=== PATIENT | male | born 1950 | race Caucasian/White ===

== ENCOUNTER → 2017-06-14 | Outpatient (CLI) | payer MEDICARE | LOC: M WUC 17:10 | DX: M79.621 Pain in right upper arm (principal) | CPT/HCPCS: 73060 ==

== ENCOUNTER 2020-09-04 03:26 | Inpatient (IN) | payer MEDICARE ==
[~2020-09-04] VITALS: Ht 172.7 cm; Wt 84.9 kg
[2020-09-04] VITALS (7 sets, daily range): BP systolic 117–134; BP diastolic 67–74
[2020-09-04 04:00] LABS: BASO % 0.3 % (0.0-1.0); HEMATOCRIT 48.1 % (42.0-52.0); HEMOGLOBIN 16.4 g/dl (13.5-17.5); LYMPH # 2.2 10^3/uL (1.5-5.0); MEAN CORPUSCULAR HGB CONC 34.1 g/dl (32.0-36.5); MEAN CORPUSCULAR VOLUME 90.9 fl (80.0-96.0); MONO # 1.5 10^3/uL (0.0-0.8); MONO % 9.3 % (2.0-8.0); NEUTROPHILS % 75.9 % (36.0-66.0); PLATELET COUNT, AUTOMATED 218 10^3/uL (150-450); RED BLOOD COUNT 5.29 10^6/uL (4.30-6.10)
[2020-09-04 04:01] LABS: WHITE BLOOD COUNT 15.8 10^3/uL (4.0-10.0)
[2020-09-04 04:29] LABS: ALBUMIN 3.5 GM/DL (3.2-5.2); ALT/SGPT 22 U/L (12-78); BILIRUBIN,DIRECT 0.3 MG/DL (0.0-0.2); BILIRUBIN,TOTAL 1.2 MG/DL (0.2-1.0); CK-MB VALUE MASS 1.4 NG/ML (<3.6); CPK CREATINE PHOSPHOKINASE 114 U/L (39-308); LIPASE 80 U/L (73-393); MB/CK RELATIVE INDEX 1.23 (< OR =4); TOTAL PROTEIN 7.5 GM/DL (6.4-8.2); TROPONIN I < 0.02 NG/ML (< 0.10)
[2020-09-04] MEDS ORDERED: NS 1,000 ML IV ONE (06:25)
[2020-09-04] MEDS ORDERED: KETOROLAC 30 MG/ML 1ML VIAL IV ONE (06:25)
[2020-09-04] MEDS ORDERED: ISOVUE-370 76% 100ML VIAL As Ordered ONE (06:33)
--- NOTE | 2020-09-04 07:51 | REPVR ---
PROCEDURE INFORMATION: Exam: CT Abdomen And Pelvis With Contrast Exam date and time: 09/04/2020 6:21 AM Age: 70 years old Clinical indication: Abdominal pain; Additional info: Periumbilic pain TECHNIQUE: Imaging protocol: Computed tomography of the abdomen and pelvis with contrast. Radiation optimization: All CT scans at this facility use at least one of these dose optimization techniques: automated exposure control; mA and/or kV adjustment per patient size (includes targeted exams where dose is matched to clinical indication); or iterative reconstruction. Contrast material: ISOVUE 370; Contrast volume: 100 ml; Contrast route: INTRAVENOUS (IV); COMPARISON: No relevant prior studies available. FINDINGS: Lungs: There is bibasilar atelectasis. There is a 7 mm right basilar granuloma. Liver: There is a 2.1 cm hypodensity in the right lobe of the liver which is statistically incidental and consistent with a cyst. There is fatty infiltration of the liver. Gallbladder and bile ducts: The gallbladder is contracted. Pancreas: Mild atrophy. No ductal dilation. Spleen: Normal. No splenomegaly. Adrenal glands: Normal. No mass. Kidneys and ureters: There is mild left hydronephrosis and hydroureter to a 9 mm calculus in the distal left ureter 1 cm from the UVJ (129/201). This appears present on the vacuum truck driver radiograph. Stomach and bowel: There is a moderate amount of stool in the right colon. Appendix: No evidence of appendicitis. Intraperitoneal space: No free air. No significant fluid collection. Vasculature: No abdominal aortic aneurysm. Lymph nodes: No enlarged lymph nodes. Urinary bladder: There is bladder wall thickening, which may be secondary to chronic outlet obstruction. Correlation urinalysis is recommended. Reproductive: Unremarkable as visualized. Bones/joints: There are degenerative changes throughout the spine. There also are degenerative changes of the hips. There is a lucency seen in the proximal left femur which may be related to a prior procedure. Soft tissues: There is a small hernia. IMPRESSION: 1. There is mild obstruction of the left kidney from a 9 mm distal left ureteral calculus 1 cm from the UVJ. 2. There are there is moderate amount of stool in the right colon. Electronically signed by: Raleigh Dunn On 09/04/2020 07:51:20 AM
[2020-09-04] MEDS ORDERED: CIPROFLOXACIN 400 MG in IV 1 EA IV ONE (09:25)
[2020-09-04 10:40] LABS: RSV AMPLIFICATION NEGATIVE (NEGATIVE)
[2020-09-04] MEDS ORDERED: MAALOX 30 ML SUSP *UDC PO PRN (11:50)
[2020-09-04] MEDS ORDERED: MOM 30ML SUSPENSION UDC PO PRN (11:50)
[2020-09-04] MEDS ORDERED: MORPHINE 2 MG/ML 1ML VIAL (J2270) IV PRN ×2 (12:00→17:45)
[2020-09-04 12:45] LABS: BLOOD UREA NITROGEN 22 MG/DL (7-18); CALCIUM LEVEL 8.7 MG/DL (8.8-10.2); CARBON DIOXIDE LEVEL 23 MEQ/L (21-32); CHLORIDE LEVEL 109 MEQ/L (98-107); CREATININE FOR GFR 0.89 MG/DL (0.70-1.30); GLOMERULAR FILTRATION RATE > 60.0 (>42); GLUCOSE, FASTING 96 MG/DL (70-100); POTASSIUM SERUM 3.9 MEQ/L (3.5-5.1); SODIUM LEVEL 139 MEQ/L (136-145)
[2020-09-04] MEDS ORDERED: CONRAY-60 60% 50ML VIAL (Q9961) As Ordered ONE (13:03)
[2020-09-04] MEDS: NS 1,000 ML IV SCH (13:15)
[2020-09-04] MEDS ORDERED: PIPERACILLIN/TAZOBACTAM SOD 3.375 GM in D5W MINI-BAG PLUS 50 ML IV SCH (14:00)
[2020-09-04] MEDS ORDERED: METOCLOPRAMIDE INJ 10MG/2ML VIAL (J2765 PER 1) As Ordered ONE (16:07)
[2020-09-04] MEDS ORDERED: ONDANSETRON 4MG/2ML VIAL As Ordered ONE (16:07)
[2020-09-04] MEDS ORDERED: LIDOCAINE 2% 100MG/5ML SDV (FOR ANES.) As Ordered ONE (16:07)
[2020-09-04] MEDS ORDERED: propofoL 200 MG/20 ML VIAL As Ordered ONE (16:07)
[2020-09-04] MEDS ORDERED: fentaNYL 100 MCG/2 ML INJECTION (J3010) As Ordered ONE (16:07)
[2020-09-04] MEDS ORDERED: MIDAZOLAM INJ 2MG/2ML VIAL (J2250 PER 1MG) As Ordered ONE (16:08)
--- NOTE | 2020-09-04 16:38 | SMCUROLCON ---
Urology Consultation General Date of Consultation 09/04/20 Reason For Consultation This patient is seen for Pyelonephritis. History of Present Illness This is a 70 y/o M w/ no significant, presenting to the ER for severe L flank and abdominal pain and weakness. A noncontrast CT A/P was notable for moderate L hydroureteronephrosis 2/2 an obstructing 1cm distal L ureteral stone. There was also perinephric stranding. He notes that his pain is a little better now. He does not feel as weak. He denies dysuria. Denies fevers. Past Medical History Medical History see [facility] Surgical Hstory b/l leg surgery several years ago Medications Current Medications Current Medications Medications (Trade) Dose Ordered Sig/Home Route PRN Reason Start Time Stop Time Status Last Admin Dose Admin Acetaminophen (Tylenol Tab) 650 mg Q4H PRN PO MILD PAIN (PS 1-4) 09/04/20 11:50 Al Hydrox/Mg Hydrox/Simethicone (Mylanta) 30 ml DAILY PRN PO DYSPEPSIA 09/04/20 11:50 Ceftriaxone Sodium 1 gm/ Dextrose 50 ml @ 100 mls/hr Q24H IV 09/04/20 19:00 Home Med (Med Rec Complete!) ASDIRECTED XX 09/04/20 12:35 09/04/20 12:38 DC Magnesium Hydroxide (Milk Of Magnesia) 30 ml DAILY PRN PO CONSTIPATION 09/04/20 11:50 Morphine Sulfate (Morphine Sulfate Inj) 2 mg Q4H PRN IV MODERATE PAIN (PS 5-7) 09/04/20 12:00 Piperacillin Sod/ Tazobactam Sod 3.375 gm/Dextrose 50 ml @ 50 mls/hr Q6H IV 09/04/20 14:00 09/04/20 15:14 DC 09/04/20 13:14 Sodium Chloride 1,000 ml @ 100 mls/hr Q10H IV 09/04/20 12:00 09/04/20 13:15 Allergies Allergies: Coded Allergies: No Known Allergies (Unverified , 09/04/20) Review of Systems Constitutional: Reports: Weakness; Denies: Fever, Chills Skin: Denies: Rash, Lesions, Breakdown, Nail Changes Pulmonary: Denies: Dyspnea, Cough Cardiovascular: Denies Chest Pain, Denies Palpitations Gastrointestinal: Reports: Abdominal Pain Genitourinary: Denies: Dysuria, Frequency, Incontinence, Hematuria Musculoskeletal: Reports: Back Pain (L flank) Psych: Reports: Mood Normal Physical Examination General Exam: Alert, Cooperative, No Acute Distress Chest Exam: Normal air movement Heart Exam: Rate Normal Abdomen Exam: Soft, Tenderness (mild) Skin Exam: Nl turgor and temperature Neuro Exam: Normal Speech Psych Exam: Mood NL Vital Signs/I&O Vital Signs Date Time Temp Pulse Resp B/P (MAP) Pulse Ox O2 Delivery O2 Flow Rate FiO2 09/04/20 13:00 97.4 69 18 134/69 (90) 98 Room Air Laboratory Data 24H Labs Laboratory Tests 2 09/04/20 03:52: POC Glucose (Misc Panel) 130H, POC Sodium (Misc Panel) 138, POC Potassium (Misc Panel) 3.9, POC Chloride (Misc Panel) 104, POC Total CO2 (Misc Panel) 22.0L, POC Blood Urea Nitrogen (Misc Panel 23, POC Ionized Calcium (Misc Panel) 4.7, POC Creatinine (Misc Panel) 1.0, POC Hematocrit (Misc Panel) 50.0 09/04/20 03:53: Immature Granulocyte % (Auto) 0.5, Neutrophils (%) (Auto) 75.9H, Lymphocytes (%) (Auto) 14.0L, Monocytes (%) (Auto) 9.3H, Eosinophils (%) (Auto) 0.0, Basophils (%) (Auto) 0.3, Neutrophils # (Auto) 12.0H, Lymphocytes # (Auto) 2.2, Monocytes # (Auto) 1.5H, Eosinophils # (Auto) 0.0, Basophils # (Auto) 0.0, Nucleated Red Blood Cells % (auto) 0.0, Lactic Acid Level 1.7, Total Bilirubin 1.2H, Direct Bilirubin 0.3H, Aspartate Amino Transf (AST/SGOT) 23, Alanine Aminotransferase (ALT/SGPT) 22, Alkaline Phosphatase 86, Total Creatine Kinase 114, Creatine Kinase MB 1.4, Creatine Kinase MB Relative Index 1.23, Troponin I < 0.02, Total Protein 7.5, Albumin 3.5, Albumin/Globulin Ratio 0.9, Lipase 80 09/04/20 07:29: Urine Color YELLOW, Urine Appearance HAZY, Urine pH 5.0, Urine Specific [place] 1.018, Urine Protein 1+H, Urine Glucose (UA) NEGATIVE, Urine Ketones NEGATIVE, Urine Blood 3+H, Urine Nitrite NEGATIVE, Urine Bilirubin NEGATIVE, Urine Urobilinogen 0.2, Urine Leukocyte Esterase 2+H, Urine WBC (Auto) 90H, Urine RBC (Auto) 12H, Urine Hyaline Casts (Auto) 0, Urine Bacteria (Auto) 1+H, Urine Squamous Epithelial Cells 0, Urine Mucus (Auto) SMALL, Urine Sperm (Auto) 09/04/20 09:39: Coronavirus (COVID-19)(PCR) NEGATIVE, Influenza Type A (RT-PCR) NEGATIVE, Influenza Type B (RT-PCR) NEGATIVE, Respiratory Syncytial Virus (PCR) NEGATIVE 09/04/20 12:06: Anion Gap 7L, Glomerular Filtration Rate > 60.0, Calcium Level 8.7L CBC/BMP Laboratory Tests 09/04/20 03:53 09/04/20 12:06 Microbiology Microbiology 09/04/20 Urine Culture, Received Pending Assessment This is a 70 y/o M w/ possible pyelonephritis an obstructing 1cm distal L uret eral stone. I recommended that we take him to the OR today for cystoscopy, L ureteroscopy w/ laser lithotripsy, and L ureteral stent placement. After a discussion of the risks and benefits, informed consent was signed. Plan - informed consent signed - NPO - zosyn and cipro given - to OR now KYLE KENT MD September 04, 2020 15:51
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
[2020-09-04] MEDS ORDERED: dexameTHASONE 4 MG/ML 1ML VIAL (J1100 PER 1MG) As Ordered ONE (17:39)
[2020-09-04] MEDS ORDERED: KETOROLAC 60MG 2ML VIAL As Ordered ONE (17:39)
[2020-09-04] MEDS ORDERED: METOCLOPRAMIDE INJ 10MG/2ML VIAL (J2765 PER 1) IV PRN (17:45)
[2020-09-04] MEDS ORDERED: oxyCODONE 5MG TAB PO PRN (17:45)
[2020-09-04] MEDS ORDERED: LR 1,000 ML IV SCH (17:45)
[2020-09-04] MEDS ORDERED: fentaNYL 100 MCG/2 ML INJECTION (J3010) IV PRN (17:45)
[2020-09-04] MEDS ORDERED: ONDANSETRON 4MG/2ML VIAL IV PRN (17:45)
[2020-09-04] MEDS ORDERED: PERCOCET 5MG/325MG TAB PO PRN (17:50)
--- NOTE | 2020-09-04 17:55 | REP ---
INDICATION: LEFT STENT PLACEMENT. COMPARISON: None. TECHNIQUE: Two C-arm views abdomen and pelvis. FINDINGS: Contrast partially opacifies the urinary bladder and the left pelvocaliceal system and ureter. There is a left ureteral stent placed. The proximal end is coiled in left renal pelvis and the distal end in the urinary bladder. IMPRESSION: 12 seconds fluoroscopy time utilized. <Electronically signed by Noel Bernard > 09/04/20 [id number]
[2020-09-04] MEDS: cefTRIAXone SOD 1 GM in D5W MINI-BAG PLUS 50 ML IV SCH (18:14)
--- NOTE | 2020-09-04 18:38 | RO ---
OPERATIVE NOTE DATE OF OPERATION: 09/04/2020 PREOPERATIVE DIAGNOSIS: Left ureteral stone. POSTOPERATIVE DIAGNOSIS: Left ureteral stone. PROCEDURE: Cystoscopy, left ureteroscopy with laser lithotripsy and basket extraction of stones, left retrograde pyelogram with intraop interpretation of images, left ureteral stent placement. SURGEON: Junior Tracy MD BULLDOZER ENGINEER: None. ANESTHESIA: General. OPERATIVE INDICATIONS: This is a 70-year-old male who presented to the hospital with weakness and severe left-sided abdominal and flank pain. He was found to have an obstructing 1 cm distal left ureteral stone as well as concern for pyelonephritis. He is brought to the operating room today for treatment. DESCRIPTION OF PROCEDURE: The patient was brought to the operating room and general anesthesia was induced. Broad-spectrum antibiotics had already been infused. A rigid cystoscope was inserted in the urethral meatus and advanced to the bladder. A guidewire was advanced up the left collecting system. I then went up the left collecting system with a short semirigid ureteroscope and within the distal ureter, an impacted 1 cm stone was seen. The stone was fragmented into smaller pieces using a 272 micron laser fiber. All the fragments were then removed using a basket. I then examined the more proximal ureter and it was very tortuous and dilated. No additional stones were seen. A retrograde pyelogram was performed and was notable for moderate left hydroureteronephrosis with no extravasation. I then withdrew the ureteroscope and no additional stones were seen inside the ureter. I then utilized the guidewire to advance a 7 [place] x 22-32 cm JJ ureteral stent up into the left collecting system. The wire was removed and there were adequate curls of the stent in the left renal pelvis and the bladder. The bladder was emptied of all fluids and this marked the conclusion of the procedure. The patient was taken out of dorsal lithotomy position, awakened from anesthesia and transported to recovery room in stable condition. ESTIMATED BLOOD LOSS: 10 mL COMPLICATIONS: None. SPECIMENS: Kidney stone fragments. PLAN: The patient will be monitored in the hospital and treated for possible pyelonephritis. He will have to follow up in urology clinic in few weeks for stent removal. JAIRO
--- NOTE | 2020-09-04 20:06 | ECGEPIP ---
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
[2020-09-05] MEDS: NS 1,000 ML IV SCH ×3 (03:04→22:26)
[2020-09-05 06:00] VITALS: BP 130/83
[2020-09-05 09:35] LABS: BASO % 0.1 % (0.0-1.0); HEMATOCRIT 43.5 % (42.0-52.0); LYMPH # 0.5 10^3/uL (1.5-5.0); LYMPH % 4.2 % (24.0-44.0); MEAN CORPUSCULAR HEMOGLOBIN 30.7 pg (27.0-33.0); MEAN CORPUSCULAR HGB CONC 32.4 g/dl (32.0-36.5); MEAN CORPUSCULAR VOLUME 94.6 fl (80.0-96.0); MONO # 0.5 10^3/uL (0.0-0.8); MONO % 3.8 % (2.0-8.0); NEUTROPHILS % 91.4 % (36.0-66.0); PLATELET COUNT, AUTOMATED 181 10^3/uL (150-450)
[2020-09-05 09:39] LABS: HEMOGLOBIN 14.1 g/dl (13.5-17.5)
[2020-09-05 09:57] LABS: BLOOD UREA NITROGEN 25 MG/DL (7-18); CALCIUM LEVEL 8.1 MG/DL (8.8-10.2); CARBON DIOXIDE LEVEL 23 MEQ/L (21-32); CHLORIDE LEVEL 110 MEQ/L (98-107); CREATININE FOR GFR 1.16 MG/DL (0.70-1.30); GLOMERULAR FILTRATION RATE > 60.0 (>42); GLUCOSE, FASTING 161 MG/DL (70-100); SODIUM LEVEL 141 MEQ/L (136-145)
[2020-09-05 10:00] VITALS: BP 123/66
--- NOTE | 2020-09-05 10:05 | IPNPDOC ---
Subjective Review oF Systems Chief Complaint The patient is a 70-year-old male admitted with a reason for visit of Pyelonephritis. Events since Last Encounter No acute events o/n. The patient has minimal pain today. Denies n/v. No f/c/ns. Objective Physical Examination General Exam: Alert, Cooperative, No Acute Distress ABDOMEN EXAM: Soft; No: Tenderness Skin Exam: Nl turgor and temperature Neuro Exam: Normal Speech Psych Exam: Mental status NL, Mood NL Other physical findings no CVA tenderness Vital Signs/I&O Vital Signs Date Time Temp Pulse Resp B/P (MAP) Pulse Ox O2 Delivery O2 Flow Rate FiO2 09/05/20 06:00 97.6 69 20 130/83 (99) 95 09/04/20 22:15 Room Air 09/04/20 17:40 2.0 I&O- Last 24 Hours up to 6 AM 09/05/20 05:59 Intake Total 3900 ml Output Total 885 ml Balance 3015 ml Laboratory Data Labs 24H Laboratory Tests 2 09/04/20 09:39: Coronavirus (COVID-19)(PCR) NEGATIVE, Influenza Type A (RT-PCR) NEGATIVE, Influenza Type B (RT-PCR) NEGATIVE, Respiratory Syncytial Virus (PCR) NEGATIVE 09/04/20 12:06: Anion Gap 7L, Glomerular Filtration Rate > 60.0, Calcium Level 8.7L 09/04/20 16:58: 09/05/20 09:25: CBC/BMP Laboratory Tests 09/04/20 12:06 Microbiology Microbiology 09/04/20 Urine Culture - Preliminary, Resulted Staphylococcus Aureus Assessment/Plan Date Seen The patient was seen on 09/05/20. Patient Summary This is a 70 y/o M admitted w/ possible L pyelonephritis and an obstructing 1cm distal L ureteral stone, POD1 s/p L ureteroscopy w/ laser lithotripsy and basket extraction of stones, L ureteral stent placement. He feels much better today. Morning labs are pending. Prelim on his urine culture from yesterday is growing S aureus. Plan/VTE VTE Prophylaxis Ordered?: Yes VTE Exclusion Mechanical Proph: N/A:VTE Prophy Ordered Plan - continue abx and adjust based on culture results - my office will arrange f/u in 2-3 weeks to remove his stent KYLE KENT MD September 05, 2020 10:05
--- NOTE | 2020-09-05 11:47 | IPN ---
PROGRESS NOTE DATE: 09/05/2020 SUBJECTIVE: Patient denies fever, chills, chronic pain, still complains of dysuria without any urinary frequency or urgency. OBJECTIVE/PHYSICAL EXAMINATION: VITAL SIGNS: Temperature 97.6, pulse 69, respiratory rate 20, blood pressure 130/83, 95% on room air. GENERAL: Awake, alert, oriented to person, place and time, answering questions appropriately. LUNGS: Clear to auscultation. No wheezing, rales or rhonchi. HEART: S1, S2, sinus rhythm. ABDOMEN: Obese, soft, nontender, non-distended. Positive bowel sounds. No CVA tenderness. No rebound or guarding. EXTREMITIES: No cyanosis, clubbing or pitting edema. LABORATORY DATA: Pending. From 09/04/2020 CBC and metabolic panel have been reviewed. Urine culture revealed Staph Aureus preliminary; full report pending. IMAGING STUDIES: CT abdomen and pelvis from 09/04/2020; mild obstruction of the left kidney with a 9 mm distal left ureteral calculus 1 cm from the UVJ with moderate amount of swelling right colon. ASSESSMENT AND PLAN: This is a 70-year-old male admitted on 09/04/2020 with a past medical history significant for arthritis of the neck, rotator cuff injury of the right shoulder, bilateral lower extremity surgery secondary to an accident, who presented with abdominal pain and found to have a mild obstruction of the left kidney from a 9 mm distal ureteral calculus 1 cm from the UVJ; status post cystoscopy, laser lithotripsy, left ureteroscopy and left stent placement by Dr. Tracy on 09/04/2020. CURRENT ISSUES: 1. 9 mm distal left ureteral calculus 1 cm from UVJ junction with left kidney obstruction; status post cystoscopy, stone extraction, laser lithotripsy and stent placement by Dr. Tracy on 09/04/2020. Currently on I.V. Ceftriaxone, Percocet and morphine for severe pain as needed. I.V. fluids. Creatinine is normal. Urine culture shows Staph Aureus over 100,000 CFU per mL, awaiting sensitivity results. If stable overnight, may discharge home and follow-up with urology within 1-2 weeks. 2. Constipation on bowel regimen. DISPOSITION: Discharge home on 09/06/2020 if no issues overnight MTDD
[2020-09-05] MEDS: ACETAMINOPHEN TAB 650MG DOSE (2X325MG) PO PRN ×2 (12:56→22:34)
--- NOTE | 2020-09-05 13:23 | IPNPDOC ---
Date Seen The patient was seen on 09/05/20. Progress Note staph aureus pyelonephritis -awaiting sensitivity results -due to recurrent fever despite iv ceftriaxone, check blood cx. -add vanco pharmacy to dose until final cx available. -if negative blood cx for staph aureus, afebrile for 24hrs, dc iv vanco and change to po meds once sensitivities are final VS, I&O, 24H, Fishbone Vital Signs/I&O Vital Signs Date Time Temp Pulse Resp B/P (MAP) Pulse Ox O2 Delivery O2 Flow Rate FiO2 09/05/20 12:54 100.6 09/05/20 10:00 85 18 123/66 (85) 92 Room Air 09/04/20 17:40 2.0 l I&O- Last 24 Hours up to 6 AM 09/05/20 06:00 Intake Total 4860 ml Output Total 1535 ml Balance 3325 ml Laboratory Data 24H LABS Laboratory Tests 2 09/04/20 16:58: 09/05/20 09:25: Immature Granulocyte % (Auto) 0.5, Neutrophils (%) (Auto) 91.4H, Lymphocytes (%) (Auto) 4.2L, Monocytes (%) (Auto) 3.8, Eosinophils (%) (Auto) 0.0, Basophils (%) (Auto) 0.1, Neutrophils # (Auto) 11.0H, Lymphocytes # (Auto) 0.5L, Monocytes # (Auto) 0.5, Eosinophils # (Auto) 0.0, Basophils # (Auto) 0.0, Nucleated Red Blood Cells % (auto) 0.0, Anion Gap 8, Glomerular Filtration Rate > 60.0, Calcium Level 8.1L 09/05/20 10:50: Lab Scanned Report Miscellaneous Lab CBC/BMP Laboratory Tests 09/05/20 09:25 Microbiology Microbiology 09/04/20 Urine Culture - Preliminary, Resulted Staphylococcus Aureus RAMSEY HOUSER MD September 05, 2020 13:23
[2020-09-05 14:00] VITALS: BP 119/66
[2020-09-05] MEDS ORDERED: VANCOMYCIN HCL 1,000 MG, VIAL MATE ADAPTER 1 EACH in NS 250 ML IV ONE (14:00)
[2020-09-05] MEDS: VANCOMYCIN HCL 1,000 MG, VIAL MATE ADAPTER 1 EACH in NS 250 ML IV SCH (17:33)
[2020-09-05 18:00] VITALS: BP 113/65
[2020-09-05] MEDS: cefTRIAXone SOD 1 GM in D5W MINI-BAG PLUS 50 ML IV SCH (18:47)
[2020-09-05 22:00] VITALS: BP 124/68
[2020-09-06 06:00] VITALS: BP 117/90
[2020-09-06] MEDS: NS 1,000 ML IV SCH (06:06)
[2020-09-06] MEDS: VANCOMYCIN HCL 1,000 MG, VIAL MATE ADAPTER 1 EACH in NS 250 ML IV SCH ×2 (06:06→15:44)
[2020-09-06 06:38] LABS: BASO % 0.6 % (0.0-1.0); EOS % 0.4 % (0.0-3.0); HEMATOCRIT 43.2 % (42.0-52.0); HEMOGLOBIN 14.1 g/dl (13.5-17.5); LYMPH % 13.7 % (24.0-44.0); MEAN CORPUSCULAR HEMOGLOBIN 30.9 pg (27.0-33.0); MEAN CORPUSCULAR HGB CONC 32.6 g/dl (32.0-36.5); MEAN CORPUSCULAR VOLUME 94.7 fl (80.0-96.0); MONO # 0.7 10^3/uL (0.0-0.8); NEUTROPHILS # 5.2 10^3/uL (1.5-8.5); PLATELET COUNT, AUTOMATED 168 10^3/uL (150-450); RED BLOOD COUNT 4.56 10^6/uL (4.30-6.10)
[2020-09-06 07:00] LABS: BLOOD UREA NITROGEN 17 MG/DL (7-18); CALCIUM LEVEL 8.1 MG/DL (8.8-10.2); CARBON DIOXIDE LEVEL 24 MEQ/L (21-32); CHLORIDE LEVEL 111 MEQ/L (98-107); CREATININE FOR GFR 0.87 MG/DL (0.70-1.30); GLOMERULAR FILTRATION RATE > 60.0 (>42); GLUCOSE, FASTING 94 MG/DL (70-100); POTASSIUM SERUM 4.6 MEQ/L (3.5-5.1); SODIUM LEVEL 140 MEQ/L (136-145)
[2020-09-06] MEDS ORDERED: BACT800T5 PO (08:34)
[2020-09-06] MEDS ORDERED: PERCOCET PO (08:34)
[2020-09-06] MEDS ORDERED: ACET1TAB55 PO (08:34)
[2020-09-06] MEDS ORDERED: BACI1CAP PO (08:34)
[2020-09-06] MEDS ORDERED: SENO8.6T10 PO (08:36)
[2020-09-06] MEDS ORDERED: MIRA3350 PO (08:36)
[2020-09-06 09:51] LABS: TOTAL 25(OH) VITAMIN D 17.5 NG/ML (30.0-100.0)
[2020-09-06 09:52] LABS: PTH INTACT 58.8 PG/ML (18.5-88.0)
--- NOTE | 2020-09-06 09:56 | IPN ---
PROGRESS NOTE DATE: 09/06/2020 SUBJECTIVE: Patient denies any dysuria, urgency, frequency. He had a low-grade temperature of 100.5 at 2230 last night and none since. Currently awaiting blood culture results. Urine culture showed MSSA resistant to Clindamycin, Erythromycin, penicillin G, sensitive to Oxacillin, Bactrim and Tetracycline. Patient denies any flank pain, nausea or vomiting. He is tolerating his diet. PHYSICAL EXAMINATION: VITAL SIGNS: Temperature 97.3, T-max 100.6 yesterday, respiratory rate 22, blood pressure 117/90, 96% on 2 liters nasal cannula. GENERAL: Awake, alert and oriented x3. HEENT: Poor dentition, dental caries, missing teeth. No JVD, thyromegaly, cervical lymphadenopathy or carotid bruit. LUNGS: Clear to auscultation. No wheezing, rales or rhonchi. HEART: S1, S2, sinus rhythm. No murmurs, rubs or gallops. ABDOMEN: Soft, nontender, non-distended. Positive bowel sounds. EXTREMITIES: No cyanosis, clubbing or pitting edema. LABORATORY DATA: Have been reviewed. IMAGING STUDIES: Have been reviewed. ASSESSMENT AND PLAN: This is a 70-year-old male admitted on 09/04/2020 with past medical history of neck pain, rotator cuff injury of right shoulder, bilateral lower extremity surgery due to an accident in the past, who presented with abdominal pain and found to have a left distal ureteral calculus in left kidney 1 cm from the UVJ; status post cystoscopy, laser lithotripsy, left ureteroscopy and left stent placement by Dr. Tracy on 09/04/2020. CURRENT ISSUES: 1. MSSA urinary tract infection, complicated, secondary to a left ureteral calculus. 2. A 9 mm distal left ureteral calculus 1 cm from UVJ junction with left kidney obstruction; status post cystoscopy, stone extraction, laser lithotripsy, and stent placement by Dr. Tracy, urologist, on 09/04/2020. Patient currently is on I.V. Vancomycin due to MSSA infection found on urine culture. Blood cultures have been sent. If positive, patient will need workup for endocarditis with echocardiogram, sed rate, CRP. If persistent fevers, will need a transesophageal echo if positive MSSA in the blood culture. Once the urine culture is finalized, we can discontinue either Ceftriaxone or Vancomycin if there is no gram negative infection. DISPOSITION: If patient does not have Staph Aureus bacteremia, he may be discharged home on Bactrim double strength one tablet p.o. b.i.d. for a total of 14 days. If patient has positive blood culture for MSSA, he will need workup to rule out endocarditis initially with a two-dimensional echocardiogram. If persistently febrile with recurrent bacteremia with MSSA, patient will need a transesophageal echocardiogram. Await blood culture results. If negative, maybe discharged home today. If positive blood culture for MSSA, patient will need workup for endocarditis. [facility]
[2020-09-06 14:00] VITALS: BP 144/70
[2020-09-06] MEDS ORDERED: metOLazone 2.5 MG TAB PO ONE (15:45)
--- NOTE | 2020-09-06 15:50 | REP ---
INDICATION: cough sob. COMPARISON: None. TECHNIQUE: Portable FINDINGS: The technique utilized in obtaining the radiograph has magnified the cardiac silhouette and accentuated the interstitial markings. There is a patchy opacity in the left CP angle. The right CP angle is clear. The lung mckenna are otherwise clear. The heart is not enlarged. The osseous structures are within normal limits. IMPRESSION: Left lower lobe patchy opacity early pneumonia versus atelectasis. <Electronically signed by Neftaly Mahmood > 09/06/20 [id number]
[2020-09-06] MEDS ORDERED: FUROSEMIDE 100MG/10ML VIAL (J1940) IV ONE (16:15)
[2020-09-06] MEDS ORDERED: MOXIFLOXACIN 400 MG TAB PO ONE (17:15)
[2020-09-06] MEDS ORDERED: CEFD300CAP PO (17:19)
--- NOTE | 2020-09-06 17:29 | DS.PDOC ---
Discharge Summary General Date of Admission September 04, 2020 at 11:08 Date of Discharge 09/06/20 Discharge Summary DISCHARGE DIAGNOSES: Left distal ureter CALCULUS MSSA urinary tract infection secondary to left distal ureteral calculus Left lower lobe atelectasis versus early pneumonia Chronic neck pain DISCHARGE MEDICATIONS: SEE BELOW ROTOR PILOT DURING THIS ADMISSION: Dr. Tracy urologist PROCEDURE DURING THIS ADMISSION: status post cystoscopy, stone extraction, laser lithotripsy, and stent placement by Dr. Tracy, urologist, on 09/04/2020. DISCHARGE INSTRUCTIONS: Outpatient follow-up with urologist within 1 week of discharge. Primary care physician appointment within 5 days of hospital discharge. Patient is to call his primary care physician if diarrhea should occur while he is on Bactrim for MSSA infection andcefdinir for possible left lower lobe pneumonia versus atelectasis. Incentive spirometry to be used for the next 7-10 days. HOSPITAL COURSE: This is a 70-year-old male admitted on 09/04/2020 with past medical history of neck pain, rotator cuff injury of right shoulder, bilateral lower extremity surgery due to an accident in the past, who presented with abdominal pain and found to have a left distal ureteral calculus in left kidney 1 cm from the UVJ; status post cystoscopy, laser lithotripsy, left ureteroscopy and left stent placement by Dr. Tracy on 09/04/2020. MSSA urinary tract infection, complicated, secondary to a left ureteral calculus. A 9 mm distal left ureteral calculus 1 cm from UVJ junction with left kidney obstruction; status post cystoscopy, stone extraction, laser lithotripsy, and stent placement by Dr. Tracy, urologist, on 09/04/2020. Patient was on ciprofloxacin, which was changed to ceftriaxone IV vancomycin was given for possible enterococcus infection and staph aureus. Once culture results returned with MSSA IV ceftriaxone was discontinued and patient was kept on IV ceftriaxone I.V. Vancomycin due to MSSA infection found on urine culture. Blood cultures were negative. , Bactrim 1 tab by mouth twice a day double strength for 14 days. Bacid with meals Left lower lobe early pneumonia versus atelectasis Due to complaints of shortness of breath and crackles on clinical exam. Chest x-ray was obtained which showed possible left lower lobe early pneumonia versus atelectasis. Since the patient had been on intravenous fluids,He will also given 1 dose of Lasix due to possible fluid overload. Incentive spirometry. Avelox 1 dose has been given. Patient is to complete 10 full days of cefdinir 300 mg bid as outpatient Bacid with meals to decrease risk of Clostridium infection Kidney stones Stone analysis and workup by urologist as outpatient. DVT prophylaxis with compression stockings DISCHARGE PHYSICAL EXAMINATION: VITAL SIGNS: Temperature 97.3, T-max 100.6 yesterday, respiratory rate 22, blood pressure 117/90, 96% on 2 liters nasal cannula. GENERAL: Awake, alert and oriented x3. HEENT: Poor dentition, dental caries, missing teeth. No JVD, thyromegaly, cervical lymphadenopathy or carotid bruit. LUNGS: Clear to auscultation. No wheezing, rales or rhonchi. HEART: S1, S2, sinus rhythm. No murmurs, rubs or gallops. ABDOMEN: Soft, nontender, non-distended. Positive bowel sounds. EXTREMITIES: No cyanosis, clubbing or pitting edema. LABORATORY DATA: see below MICROBIOLOGY: SEE BELOW IMAGING STUDIES: SEE BELOW TIME SPENT ON DISCHARGE 30 MINUTES Vital Signs/I&Os Vital Signs Date Time Temp Pulse Resp B/P (MAP) Pulse Ox O2 Delivery O2 Flow Rate FiO2 09/06/20 17:11 93 Room Air 09/06/20 14:00 98.5 78 20 144/70 (94) 09/06/20 06:00 2.0 I&O- Last 24 Hours up to 6 AM 09/06/20 06:00 Intake Total 4380 ml Output Total 2250 ml Balance 2130 ml Laboratory Data Labs 24H Laboratory Tests 2 09/06/20 06:16: Immature Granulocyte % (Auto) 1.3, Neutrophils (%) (Auto) 74.0H, Lymphocytes (%) (Auto) 13.7L, Monocytes (%) (Auto) 10.0H, Eosinophils (%) (Auto) 0.4, Basophils (%) (Auto) 0.6, Neutrophils # (Auto) 5.2, Lymphocytes # (Auto) 1.0L, Monocytes # (Auto) 0.7, Eosinophils # (Auto) 0.0, Basophils # (Auto) 0.0, Nucleated Red Blood Cells % (auto) 0.0, Anion Gap 5L, Glomerular Filtration Rate > 60.0, Calcium Level 8.1L, 25-Hydroxy Vitamin D Total 17.5L, Parathyroid Hormone (Intact) 58.8 CBC/BMP Laboratory Tests 09/06/20 06:16 Microbiology Microbiology 09/05/20 Blood Culture - Preliminary, Resulted No growth after 24 hours . All specim... 09/05/20 Blood Culture - Preliminary, Resulted No growth after 24 hours . All specim... 09/04/20 Urine Culture - Final, Complete Staphylococcus Aureus Discharge Medications Scheduled Bacillus Coagulans (Bacid with Lactospore) 1 Each Capsule, 1 CAP PO [facility] Cefdinir (Cefdinir) 300 Mg Capsule, 300 MG PO BID Sulfamethoxazole/Trimethoprim (Bactrim Ds Tablet) 1 Each Tablet, 1 TAB PO BID Scheduled PRN Acetaminophen (Acetaminophen) 325 Mg Tablet, 650 MG PO Q4H PRN for MILD PAIN (PS 1-4) Oxycodone/Acetaminophen (Oxycodone-Acetaminophen 5-325) 1 Each Tablet, 1 TAB PO Q4HP PRN for MODERATE PAIN (PS 5-7) Polyethylene Glycol 3350 (Miralax) 119 Gm Powder, 17 GM PO DAILY PRN for C ONSTIPATION dilute in 8 ounces of water or juice Sennosides/Docusate Sodium (Senokot-S Tablet) 1 Each Tablet, 2 TAB PO BIDP PRN for BOWEL CARE/CONSTIPATION Allergies Coded Allergies: No Known Allergies (Unverified , 09/04/20) RAMSEY HOUSER MD September 06, 2020 17:29
== END 2020-09-06 17:50 | disposition home or self-care (01) | DRG 659 ==
LOC: M ED 03:26 → M ED INP 11:08 → M MSPAV 12:57
PROVIDERS: ADMIT Internal Medicine; ATTEND General Practice
PROC: 0TC78ZZ Extirpation of Matter from Left Ureter, Via Natural or Artificial Opening Endoscopic (ICD-10-PCS; 2020-09-04)
PROC: 0T778DZ Dilation of Left Ureter with Intraluminal Device, Via Natural or Artificial Opening Endoscopic (ICD-10-PCS; principal; 2020-09-04 16:00)
DX: N13.6 Pyonephrosis (principal); J18.9 Pneumonia, unspecified organism; J98.11 Atelectasis; N39.0 Urinary tract infection, site not specified; M54.2 Cervicalgia; Z79.899 Other long term (current) drug therapy

== ENCOUNTER → 2020-10-16 | Outpatient (REF) | payer MEDICARE ==
[~2020-10-16] MED LIST: ACET1TAB55 PO; BACI1CAP PO; BACT800T5 PO; CEFD300CAP PO; MIRA3350 PO; PERCOCET PO; SENO8.6T10 PO
== END ==
LOC: M SMT 13:05
PROVIDERS: ATTEND Urology
DX: Z96.0 Presence of urogenital implants (principal); Z79.899 Other long term (current) drug therapy